=== PATIENT | male | born 1945 | race Caucasian/White ===

== ENCOUNTER 2019-01-20 11:54 | Outpatient (CLI) | payer MEDICARE | END 2019-01-20 23:59 | disposition home or self-care (01) | LOC: CFH 11:54 | PROVIDERS: ATTEND Nurse Practitioner | DX: Z12.2 Encounter for screening for malignant neoplasm of respiratory organs (principal); J84.10 Pulmonary fibrosis, unspecified; J44.9 Chronic obstructive pulmonary disease, unspecified; J96.11 Chronic respiratory failure with hypoxia; I25.10 Atherosclerotic heart disease of native coronary artery without angina pectoris; I10 Essential (primary) hypertension; F17.293 Nicotine dependence, other tobacco product, with withdrawal; F17.210 Nicotine dependence, cigarettes, uncomplicated | CPT/HCPCS: G0297 ==